=== PATIENT | female | born 1950 | race Caucasian/White ===

== ENCOUNTER 2021-11-05 13:11 | Emergency (ER) | payer MEDICARE, SELFPAY ==
[2021-11-05 13:18] VITALS: BP 133/68; PULSE 78; RESP 16; TEMP 36.6; O2SAT 97
--- NOTE | 2021-11-05 14:02 | ED.URI ---
HPI - URI/Sore Throat General Chief Complaint: Upper Respiratory Infection Stated Complaint: COUGH Time Seen by Provider: 11/05/21 13:40 Source: patient, RN notes reviewed and old records reviewed Mode of arrival: ambulatory Limitations: no limitations History of Present Illness HPI Narrative: 71-year-old female patient [facility] of cough started last night. Reports headache with cough. Mild sore throat. Started coughing last night when she was laying down in bed. Has had difficulty stopping coughing. Bringing up clear sputum at times. Has not taken any medicine for her cough. Denies shortness of breath or difficulty breathing. Denies stuffy nose, runny nose, earache. Just came back from [place] where it was dry and zully. Does have seasonal allergies. Appetite is good. Denies fever muscle aches or chills. MD elicited complaint: cough, sore throat, rhinorrhea and nasal congestion Related Data Home Medications Medication Instructions Recorded Confirmed sertraline 25 mg tablet 25 mg PO DAILY 04/06/20 10/14/20 zolpidem 6.25 mg tablet,extended 6.25 mg PO .QHS tablet 10/14/20 10/14/20 release,multiphase Allergies Allergy/AdvReac Type Severity Reaction Status Date / Time erythromycin base Allergy Unknown Unknown Verified 10/14/20 09:44 Macrolide Antibiotics Allergy Unknown nknown Verified 10/14/20 09:44 nickel Allergy Unknown unknown Verified 10/14/20 09:44 procaine Allergy Unknown DEPRESSED Verified 10/14/20 09:44 BREATHING Review of Systems Review of Systems: CONSTITUTIONAL: Denies malaise, chills, sweats, or fever. EYES: Denies visual changes, redness, or discharge. ENT: Denies rhinorrhea, congestion, sinus pain, otalgia. Mild sore throat. CARDIOVASCULAR: Denies chest pain, palpitations, or edema. RESPIRATORY: Reports frequent cough. Occasional clear sputum. Denies dyspnea or shortness of breath. GASTROINTESTINAL: Denies abdominal pain, nausea, vomiting, diarrhea SKIN: Denies rash or itching. MUSCULOSKELETAL: Denies myalgia. NEUROLOGIC: Denies headache. All systems reviewed & are unremarkable except as noted in HPI and below PMFSH Past Medical History Medical History Body mass index (BMI) 40.0-44.9, adult (08/26/15) Chronic kidney disease, stage 3 (moderate) Depression Essential (primary) hypertension (~1991) Hypothyroidism (acquired) (~2009) Non-recurrent acute suppurative otitis media of right ear without spontaneous rupture of tympanic membrane Other hyperlipidemia Postmenopausal Presence of total right knee joint prosthesis Primary osteoarthritis of knees, bilateral Renovascular hypertension Sleep apnea in adult (~2013) Vitamin D deficiency (~2014) Surgical History Surgical History H/O prior ablation treatment (~1999) Uterine H/O sinus surgery (~1984) History of cholecystectomy (~03/2016) History of total right knee replacement (TKR) (~1984) Family History Family History Father Family history of lung cancer Mother Family history of Alzheimer's disease Sibling , 72 Family history of malignant neoplasm of kidney Heart disease Hypertension Sibling , 55 Acute myocardial infarction Other Family history of arthritis Family history of malignant neoplasm Social History Social History Smoking status: Never smoker Alcohol intake: never Comments At time of signature, agree with nursing past medical, surgical, social and family history. There is no relevant family history pertinent to the presenting complaint Exam Narrative: GENERAL: Well-appearing, well-nourished, female and in no acute distress. Pleasant and cooperative. HEAD: Normocephalic EYES: Conjunctivae clear ENT: Nares clear, clear discharg
== END 2021-11-05 14:20 | disposition home or self-care (01) ==
PROVIDERS: Emergency Provider Nurse Practitioner Family; PCP Internal Medicine
DX: J30.9 Allergic rhinitis, unspecified (principal); I12.9 Hypertensive chronic kidney disease with stage 1 through stage 4 chronic kidney disease, or unspecified chronic kidney disease; N18.30 Chronic kidney disease, stage 3 unspecified; E03.9 Hypothyroidism, unspecified; M17.0 Bilateral primary osteoarthritis of knee; G47.30 Sleep apnea, unspecified; F32.A Depression, unspecified; Z96.651 Presence of right artificial knee joint
CPT/HCPCS: 99213; G0463

== ENCOUNTER 2022-08-31 07:42 | Outpatient (CLI) | payer MEDICARE, SELFPAY ==
--- NOTE | 2022-08-31 | ECHO_ITS ---
Patient Info Name: Adwoa Quick Age: 72 years : 1950 Gender: Female Ht: 64 in Wt: 235 lbs BSA: 2.25 m2 HR: 65 bpm BP: 145 / 97 mmHg Heart Rhythm: Sinus Rhythm Exam Date: 08/31/2022 8:20 AM Exam Location: [facility] Patient Status: Outpatient Admit Date: 08/31/2022 Staff Ordering Physician: Raymon, Alfonso PENA Pharmacometrician: Ivan Clark, JEREMYCS, RT Attending Provider: Raymon, Alfonso PENA Exam Type: CA echo doppler color flow Study Info Indications R94.31 - Abnormal electrocardiogram ECG EKG Complete two-dimensional, color flow and Doppler transthoracic echocardiogram is performed. Strain analysis performed. Summary 1. Complete two-dimensional, color flow and Doppler transthoracic echocardiogram is performed. 2. Global longitudinal strain is borderline at -16 %. 3. Left ventricular chamber dimension is normal. 4. Left ventricular systolic function is normal, estimated at 65-70%. 5. There is moderately increased left ventricular wall thickness. 6. The left ventricular diastolic function is grade I diastolic dysfunction. 7. Left atrial chamber dimension is mildly enlarged. 8. There is mild aortic valve calcification. 9. There is mild tricuspid valve regurgitation. 10. There is mild pulmonic regurgitation. 11. There is mild mitral valve regurgitation. 12. Strain analysis performed. Left Ventricle Global longitudinal strain is borderline at -16 %. Left ventricular chamber dimension is normal. Left ventricular systolic function is normal, estimated at 65-70%. There is moderately increased left ventricular wall thickness. The left ventricular diastolic function is grade I diastolic dysfunction. Right Ventricle Right ventricular chamber dimension is normal. Right ventricular systolic function is normal. Left Atria Left atrial chamber dimension is mildly enlarged. Right Atria Right atrial chamber dimension is normal. Atrial Septum Intact interatrial septum visualized by color flow imaging. Aortic Valve The aortic valve is trileaflet. There is mild aortic valve sclerosis. There is no aortic valve stenosis. There is trace aortic valve regurgitation. There is mild aortic valve calcification. Pulmonic Valve The pulmonic valve is normal. There is no pulmonic valve stenosis. There is mild pulmonic regurgitation. Mitral Valve The mitral valve has normal leaflets. There is no mitral valve stenosis. There is mild mitral valve regurgitation. Tricuspid Valve The tricuspid valve leaflets are normal. There is no significant tricuspid valve stenosis. There is mild tricuspid valve regurgitation. Pericardium/Pleural The pericardium appears normal. There is trivial pericardial effusion. Inferior Vena Cava Normal inferior vena cava with <50% collapse upon inspiration consistent with elevated right atrial pressure, 10 mmHg. Aorta The aortic root size at the sinus of Valsalva is normal. Left Ventricular Outflow Tract Name Value Normal LVOT 2D LVOT Diameter 2.0 cm LVOT Doppler LVOT Peak Gradient 3 mmHg LVOT Mean Gradient
== END 2022-08-31 07:43 | disposition home or self-care (01) ==
PROVIDERS: PCP Internal Medicine; Visit Provider Internal Medicine
DX: R94.31 Abnormal electrocardiogram [ECG] [EKG] (principal); I10 Essential (primary) hypertension; I08.3 Combined rheumatic disorders of mitral, aortic and tricuspid valves
CPT/HCPCS: 93306

== ENCOUNTER 2023-12-02 16:46 | Emergency (ER) | payer MEDICARE, SELFPAY ==
--- NOTE | 2023-12-02 16:52 | ED.GENADULT ---
HPI - General Adult General Chief complaint: Upper Respiratory Infection Stated complaint: SINUS/COUGH/SNEEZING/SORE THROAT Source: patient, RN notes reviewed and old records reviewed Mode of arrival: ambulatory Limitations: no limitations History of Present Illness HPI narrative: 73-year-old female presents to [facility] with complaints of sinus congestion, sinus pressure, myalgia, fever, slight cough, sore throat, frequent sneezing this started Sunday. Patient taking Mucinex with little relief. Patient states his fever was 101. Related Data Home Medications Medication Instructions Recorded Confirmed cholecalciferol (vitamin D3) 25 12/02/23 12/02/23 mcg (1,000 unit) tablet fenofibrate 160 mg tablet 160 mg PO DAILY 12/02/23 12/02/23 levothyroxine 50 mcg tablet 50 mcg PO DAILY 12/02/23 12/02/23 lisinopril 5 mg tablet 5 mg PO DAILY 12/02/23 12/02/23 rosuvastatin 20 mg tablet 20 mg PO DAILY 12/02/23 12/02/23 sertraline 25 mg tablet 25 mg PO DAILY 12/02/23 12/02/23 Allergies Allergy/AdvReac Type Severity Reaction Status Date / Time erythromycin base Allergy Unknown Unknown Verified 12/02/23 16:56 Macrolide Antibiotics Allergy Unknown nknown Verified 12/02/23 16:56 nickel Allergy Unknown unknown Verified 12/02/23 16:56 procaine Allergy Unknown DEPRESSED Verified 12/02/23 16:56 BREATHING Review of Systems Constitutional: Constitutional: Reports no additional constitutional complaints, Reports body ache(s), Denies chills, Denies fatigue, Reports fever(s) and Reports headache(s) Eyes: Eyes: Reports no additional eye complaints and Denies blurry vision ENT: Reports system reviewed and no additional complaints, except as documented, Denies vertigo, Denies dizziness, Denies ear discharge, Denies otalgia, Denies facial pain, Denies headache(s), Reports nasal congestion, Reports nasal discharge, Denies sinus pain, Reports sinus pressure and Reports sore throat Cardiovascular: Cardiovascular: Reports no additional cardiovascular complaints, Denies chest pain, Denies chest pain at rest, Denies rapid heart rate and Denies dyspnea Respiratory: Respiratory: Reports no additional respiratory complaints, Denies chest congestion, Reports cough, Denies pain on inspiration, Denies pain with cough and Denies dyspnea Gastrointestinal: Gastrointestinal: Denies abdominal pain, Denies diarrhea, Denies nausea and Denies vomiting Integumentary/Breasts: Skin/Breast: Denies rash Neurologic: Reports system reviewed and no additional complaints, except as documented, Denies vertigo, Denies dizziness and Denies headache(s) Endocrine: Endocrine: Denies fatigue PMFSH Past Medical History Medical History Acute gangrenous cholecystitis Acute recurrent pansinusitis Body mass index (BMI) 40.0-44.9, adult (08/26/15) Cholelithiasis with biliary obstruction Chronic kidney disease, stage 3 (moderate) Depression Essential (primary) hypertension (~1991) Hypothyroidism (acquired) (~2009) Non-recurrent acute suppurative otitis media of right ear without spontaneous rupture of tympanic membrane Other hyperlipidemia Postmenopausal Presence of total right knee joint prosthesis Primary osteoarthritis of knees, bilateral Renovascular hypertension Sleep apnea in adult (~2013) Vitamin D deficiency (~2014) Surgical History Surgical History H/O prior ablation treatment (~1999) Uterine H/O sinus surgery (~1984) History of cholecystectomy (~03/2016) History of total right knee replacement (TKR) (~1984) Family History Family History Father Family history of lung cancer Mother Family history of Alzheimer's disease Sibling , 72 Family history of malignant neoplasm of kidney Heart disease Hypertension Sibling , 55 Acute myocardial infarction Other Family
[2023-12-02 16:57] VITALS: BP 158/90; PULSE 89; RESP 16; TEMP 37.7; O2SAT 100
[2023-12-02 16:58] VITALS: BP 158/90; PULSE 89; RESP 16; TEMP 37.7; O2SAT 100
== END 2023-12-02 17:22 | disposition home or self-care (01) ==
PROVIDERS: Emergency Provider Registered Nurse; PCP Internal Medicine
DX: B34.9 Viral infection, unspecified (principal); Z20.822 Contact with and (suspected) exposure to COVID-19; I12.9 Hypertensive chronic kidney disease with stage 1 through stage 4 chronic kidney disease, or unspecified chronic kidney disease; N18.30 Chronic kidney disease, stage 3 unspecified; E03.9 Hypothyroidism, unspecified; E78.2 Mixed hyperlipidemia; M17.0 Bilateral primary osteoarthritis of knee; Z96.651 Presence of right artificial knee joint; E55.9 Vitamin D deficiency, unspecified; F32.A Depression, unspecified
CPT/HCPCS: 87426; 87804; 99213; G0463

== ENCOUNTER 2025-01-28 13:44 | Outpatient (CLI) | payer MEDICARE, SELFPAY ==
--- NOTE | ~2025-01-28 | MM_ITS ---
EXAMINATION: MM screening prince BI w louise HISTORY: Screening TECHNIQUE: Craniocaudal and mediolateral oblique 3-D tomosynthesis images were obtained and synthetic 2-D images were generated. CAD analysis was submitted and interpreted. COMPARISON: No prior mammogram is available for comparison at this institution. BREAST PARENCHYMAL COMPOSITION: Not dense: There are scattered areas of fibroglandular density. FINDINGS: There is no evidence of suspicious mass, calcification, or architectural distortion to sugg est malignancy in either breast. There has been no suspicious interval change. IMPRESSION: 1. No mammographic evidence of malignancy. 2. Recommend routine screening mammography in one year. BI-RADS Category 1: Negative Reviewed, dictated and finalized at location B.
--- NOTE | ~2025-01-28 | DEXA_ITS ---
Bone Density Report Name: YAMILA PINK Age: 74 Sex: Female Ethnicity: White Date of : 1950 Indication: postmenopausal; screening for osteoporosis; Referring Provider: HAL, CASEY Study: Bone densitometry was performed. Exam Date: January 28, 2025 Accession number: [id number] Bone Density: Region BMD T-score Z-score Classification AP Spine(L1, L2, L3) 0.938 -0.7 1.5 Normal Femoral Neck (Left) 0.694 -1.4 0.6 Osteopenia Total Hip (Left) 0.825 -1.0 0.7 Normal Femoral Neck (Right) 0.631 -2.0 0.0 Osteopenia Total Hip (Right) 0.804 -1.1 0.5 Osteopenia Total Hip Mean 0.815 -1.1 0.6 Osteopenia World Health Organization criteria for BMD impression classify patients as: Normal (T-score at or above -1.0), Osteopenia (T-score between -1.0 and -2.5), or Osteoporosis (T-score at or below -2.5). 10-year Fracture Risk(1): Major Osteoporotic Fracture 10% Hip Fracture 2.0% Reported Risk Factors: [place] (), Neck BMD=0.631, BMI=44.3 (1) FRAX(R) Version 3.08. Fracture probability calculated for an untreated patient. Fracture probability may be lower if the patient has received treatment. Clinical Information Provided by Patient: Has used the following medications: Vitamin D Patient maximum height was 64 Menopause Age: 52 No regular weight bearing exercise Drinks caffeinated beverages Onset of menses at age 14 Number of children 0 Impression: The patient has low bone mass, based on the Right Femoral Neck T-score. The patient has an estimated ten-year risk of hip fracture of 2% and an estimated ten-year risk of major fracture of 10%, based on the WHO FRAX algorithm. Discussion: BONE DENSITY IS LOW AT ONE OR MORE SKELETAL SITES. This patient's lowest T-score is low at one or more skeletal sites. It meets the World Health Organization's (WHO) criteria for ?low bone mass? (T-score between -1.0 and -2.5). The patient's 10-year risk of fracture as calculated by FRAX is less than the threshold where pharmacological therapy is recommended by the National Osteoporosis Foundation (NOF). However, all treatment decisions require clinical judgment and consideration of individual patient factors, including patient preferences, comorbidities, previous drug use, risk factors not captured in the FRAX model (e.g., frailty, falls, vitamin D deficiency, increased bone turnover, interval significant decline in bone density) and possible under or overestimation of fracture risk by FRAX. The patient should follow a healthful lifestyle (good nutrition with adequate calcium and vitamin D, and appropriate weight-bearing exercise). Follow-Up: Consider repeating this study in 2 to 3 years to reassess this patient's status, or sooner if there is some new clinical indication. Reported by: JJ on 01/28/2025 2:21:00 PM. Reviewed, dictated and finalized at location A.
--- OUTSIDE RECORDS SUMMARY | 2025-01-28 13:54 | XMS_ITS | Referral Summary ---
Author Organization [facility] [address] [facility] [address] [facility] [address] [place] [address] Care Team Providers Care Medical Laboratory Specialist Name Role Phone Alfonso Ennis MD Primary Care Provider [phone] Allergies No known active allergies Medications acetaminophen ER (TYLENOL) 650 mg 8 hr tablet Take 1 tablet (650 mg total) by mouth 3 (three) times a day as needed 04/20/2022 Active albuterol HFA (PROVENTIL HFA,VENTOLIN HFA,PROAIR HFA) 90 mcg/actuation inhaler Inhale 2 puffs every 6 (six) hours as needed 12/03/2023 Active aspirin 81 mg enteric coated tablet Take by mouth daily 10/18/2015 Active cholecalciferol 25 mcg (1,000 unit) tablet Take 5 tablets (5,000 Units total) by mouth daily 04/20/[address] (DEPAKOTE) 500 mg EC tablet Take by mouth 07/10/2015 Active fenofibrate (TRIGLIDE) 160 mg tablet 07/10/2015 Active Synthroid 50 mcg tablet 07/10/2015 Active lisinopriL (PRINIVIL,ZESTR [place]) 5 mg tablet Take 1 tablet (5 mg total) by mouth daily Active lovastatin (MEVACOR) 20 mg tablet Take 1 tablet (20 mg total) by mouth nightly Active rosuvastatin (CRESTOR) 20 mg tablet Take 1 tablet (20 mg total) by mouth daily 04/01/2024 Active sertraline (ZOLOFT) 50 mg tablet 07/10/2015 Active traMADoL (ULTRAM) 50 mg tablet Take 1 tablet (50 mg total) by mouth daily as needed 04/20/2023 Active triamterene-hyd roCHLOROthiazid e 37.5-25 mg per tablet/capsule 07/10/2015 Acti ve zolpidem CR (AMBIEN CR) 6.25 mg CR tablet 07/10/2015 Active benzonatate (TESSALON) 200 mg capsuleIndicati ons:COVID-19 Take 1 capsule (200 mg total) by mouth 3 (three) times a day as needed for cough 30 capsule 04/23/2024 Active Active Problems Problem Noted Date Diagnosed Date Stage 3b chronic kidney disease 04/20/2021 Overview (04/23/2024): Kidney function currently stable. Patient avoiding NSAIDs. Medications renally dosed. Acquired hypothyroidism 04/19/2021 Bipolar depression 04/19/2021 Overview (04/23/2024): Follows with psychiatry On divalproex and sertraline. Regular follow up Symptoms currently stable. No suicidal ideations or intentions to harm. Patient currently compliant with medications for any side effects. Class 3 severe obesity due to excess calories in adult 04/19/2021 Overview (04/23/2024): -Pt has elevated weight with BMI Body mass index is 41.06 kg/m ., and will need to work hard on reducing carbohydrates and total calories. -You may use the free smart phone apps such as [place] to help track calories and try to reduce by 15% every 4 weeks. -Patient will work on reducing total portion sizes to try to reduce the size of their stomach. -Exercising about 30 minutes every day with cardio work outs. -Avoid regular soda, juices and alcohol. -Recommended limiting GPS foods (Grains, Potatoes, Sugars) as much as possible. Eating food that it is not highly processed and that they can recognize. Eating when they are hungry and not by a time schedule. -Lets aim to have them loose about 1 pound per week and 5 pounds per month. Insomnia 04/19/2021 Mixed hyperlipidemia 04/19/2021 Primary osteoarthritis involving multiple joints 04/19/2021 Vitamin D deficiency 04/19/2021 Osteoarthritis 07/12/2015 Other hyperlipidemia 07/12/2015 Overview (04/23/2024): Converted unresolved ICD9, potential mismatch. 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 Gender Identity Not on file Sexual Orientation Not on file Last Filed Vital Signs Vital Sign Reading Time Taken Comments Blood Pressure 130/86 04/23/2024 5:16 PM CDT Pulse 85 04/23/2024 5:16 PM CDT Temperature 37.7 C (99.9 F) 04/23/2024 5:16 PM CDT Respiratory Rate 18 04/23/2024 5:16 PM CDT Oxygen Saturation 95% 04/23/2024 5:16 PM CDT Inhaled Oxygen Concentration - - Weight 117.9 kg (260 lb) 04/23/2024 5:16 PM CDT Height 162.6 cm (5' 4 ) 04/23/2024 5:16 PM CDT Body Mass Index 44.63 04/23/2024 5:16 PM CDT Plan of Treatment Not on file Insurance [facility] MEDICARE ADVANTAGE [facility] MEDICARE ADVANTAGE Care Teams Medical Laboratory Specialist Relationship Specialty Start Date End Date Alfonso Ennis MD [address] [address] PCP - General Internal Medicine 08/31/22
--- OUTSIDE RECORDS SUMMARY | 2025-01-28 13:54 | XMS_ITS | Clinical Summary ---
Author Organization [facility] Address [address] [place] [address] Care Team Providers Care Automobile Painter Name Role Phone Pako Sánchez MD Primary Care Provider [phone] Source Comments [facility],non-owned Affiliates and Associated Physician Practices is amultiple site organization consisting of ambulatory clinics and hospital sitesin [place], [place], [place] and [place]. This disclosure is being madepursuant to the Care Everywhere program and may not contain all information available regarding this patient. Last updated 18.[facility] Allergies No known active allergies Medications * Be aware that medications may not be up to date on this document. Alwaysverify current medications with the patient. zolpidem CR (AMBIEN CR) 6.25 MG tablet Take 6.25 mg by mouth nightly as needed for Insomnia Active divalproex DR (DEPAKOTE) 500 MG tablet Take 500 mg by mouth 3 times daily Active fenofibrate (LOFIBRA) 160 MG tablet Take 160 mg by mouth once daily Take with largest meal of the day. Active lovastatin (MEVACOR) 20 MG tablet Take 20 mg by mouth at bedtime Active triamterene-hyd roCHLOROthiazid e (MAXZIDE-25) 37.5-25 MG tablet Take 1 tablet by mouth once daily Active levothyroxine (SYNTHROID) 25 MCG tablet Take 25 mcg by mouth daily before breakfast Active ASPIRIN 81 PO Active Family History Medical History Relation Name Comments Cancer - Other Father Alzheimer's Disease Mother Asthma Neg Hx Autoimmune Disease Neg Hx Bipolar Disorder Neg Hx Cancer - Breast Neg Hx Cancer - Colon Neg Hx Cancer - Ovarian Neg Hx Cancer - Pancreatic Neg Hx Cancer - Prostate Neg Hx Depression Neg Hx Eczema Neg Hx Hypertension Neg Hx Migraine Neg Hx Osteoporosis Neg Hx Seizures Neg Hx Sudd. <30 Neg Hx Thyroid Disease Neg Hx Ulcerative Colitis Neg Hx Relation Name Status Comments Father Mother Social History Tobacco Use Types Packs/Day Years Used Date Smoking Tobacco: Never Smokeless Tobacco: Never Tobacco Cessation:Counseling Given: No Alcohol Use Standard Drinks/Week Comments No 0 (1 standard drink = 0.6 oz pur e alcohol) Comments No Sex and Gender Information Value Date Recorded Sex Assigned at Not on file Legal Sex Female 12:03 PM CDT Gender Identity Not on file Sexual Orientation Not on file Last Filed Vital Signs Vital Sign Reading Time Taken Comments Blood Pressure 126/54 03/25/2018 3:52 PM CDT Pulse 60 03/25/2018 3:52 PM CDT Temperature 36.6 C (97.9 F) 03/25/2018 3:52 PM CDT Respiratory Rate 20 03/25/2018 3:52 PM CDT Oxygen Saturation 97% 03/25/2018 3:52 PM CDT Inhaled Oxygen Concentration - - Weight 113.4 kg (250 lb) 03/25/2018 3:52 PM CDT Height 162.6 cm (5' 4 ) 03/25/2018 3:52 PM CDT Body Mass Index 42.91 03/25/2018 3:52 PM CDT Plan of Treatment Health Maintenance Due Date Last Done Comments BONE DENSITY TESTING 1950 COLOGUARD (AGES 45-75) - COL ON CA SCREENING 1950 COLON MONITORING 1950 COLONOSCOPY - COLON CA SCREENING 1950 CT COLONOGRAPHY - COLON CA SCREENING 1950 Colorectal Cancer Screening 1950 FIT - COLON CA SCREENING 1950 FLEX SIG - COLON CA SCREENING 1950 MAMMOGRAM 1950 HEPATITIS C SCREENING 05/07/1970 DTAP/TDAP/TD VACCINES (1 - Tdap) 1971 PNEUMOCOCCAL VACCINE 50+ (1 of 1 - PCV) 2002 ZOSTER VACCINE (1 of 2) 2002 Respiratory Syncytial Virus (RSV) Vaccine Pt: or over 60 yrs (1 - Risk 60-74 years 1-dose series) 2012 SCREENING FOR DIABETES 03/25/2018 COVID-19 VACCINE (1 - 2024-2 5 season) 2024 DEPRESSION SCREENING 09/10/2024 INFLUENZA VACCINE (Season Ended) 2025 HEPATITIS B VACCINE Aged Out No longe r eligible based on patient's age to complete this topic HIB VACCINE Aged Out No longer eligi ble based on patient's age to complete this topic HPV VACCINE Aged Out No longer eligi ble based on patient's age to complete this topic MENINGOCOCCAL (Group B) VACC INE SHARED DECISION-MAKING Aged Out No longer eligibl e based on patient's age to complete this topic MENINGOCOCCAL GROUPS A/C/Y/W VACCINE Aged Out No longer eligible b ased on patient's age to complete this topic Insurance [facility] MANAGED MEDICARE ADV Care Teams Automobile Painter Relationship Specialty Start Date End Date Pako Sánchez MD [address] [place] [address] PCP - General Family Medicine 03/25/18
--- OUTSIDE RECORDS SUMMARY | 2025-01-28 13:54 | XMS_ITS | Clinical Summary ---
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 Gender Identity Not on file Sexual Orientation Not on file Obstetrics History Last Filed Vital Signs Vital Sign Reading [...] 04/23/2024 5:16 PM CDT Plan of Treatment Health Maintenance Due Date Last Done Comments Colon Cancer Screening-Colonoscopy 1950 Depression Screening 1950 Fall Risk Assessment 1950 Hepatitis C Screening 1950 Hepatitis B Screening 1970 Zoster Vaccine (1 of 2) 2002 Well Visit 65+ 2017 Osteoporosis Screening-Bone Density Scan 05/05/2023 05/05/2021 Breast Cancer Screening-Mammogram 05/09/2023 05/09/2022, 05/09/2022, 05/05/2021 DTaP/Tdap/Td Vaccine (2 - Td or Tdap) 09/10/2023 09/10/2013 Covid-19 Vaccine (2023-10 5 season) 2024 05/30/2023, 08/08/2022, 06/29/2021, Additional history exists Influenza Vaccine (Season Ended) 2025 05/30/2023, 08/09/2022, 06/15/2021, Additional history exists Pneumococcal vaccine 65+ Completed 022, 04/19/2021, 07/29/2014 Insurance [facility] MEDIC[facility] ADVANTAGE [facility] Care Teams Patient Scheduler Relationship Specialty Start Date End Date Alfonso Ennis MD [address] [address] PCP - General Internal Medicine 08/31/22
--- OUTSIDE RECORDS SUMMARY | 2025-01-28 13:54 | XMS_ITS | Clinical Summary ---
Author Organization [facility] Address [address] [place] [id number] Phone Care Team Providers Care Hand Tacker Name Role Phone Unavailable Primary Care Provider Unavailabl e Medications aspirin (ASPIR-LOW) 81 MG EC tablet 1 daily 10/18/2015 Active zolpidem CR (AMBIEN CR) 6.25 MG CR tablet 07/10/2015 Active fenofibrate (TRIGLIDE) 160 MG tablet 07/10/2015 Active divalproex (DEPAKOTE) 500 MG EC tablet 3 daily 07/10/2015 Active triamterene-hydr oCHLOROthiazide (MAXZIDE-25) 37.5-25 MG per tablet 07/10/2015 Active levothyroxine (SYNTHROID) 50 MCG tablet 07/10/2015 Active sertraline (ZOLOFT) 50 MG tablet 07/10/2015 Active Active Problems Problem Noted Date Diagnosed Date Other specified abnormal finding of blood chemis try 07/12/2015 Essential (primary) hypertension 07/12/2015 Other hyperlipidemia 07/12/2015 Overview (11/23/2018): Converted unresolved ICD9, potential mismatch. Osteoarthritis 07/12/2015 Family History Medical History Relation Comments Malignant neoplastic disease Father Malignant neoplastic disease Sibling Kidney disease Neg Hx Relation Status Comments Father Sibling Social History Tobacco Use Types Packs/Day Years Used Date Smoking Tobacco: Never Alcohol Use Standard Drinks/Week Comments No 0 (1 standard drink = 0.6 oz pur e alcohol) Comments Unknown Sex and Gender Information Value Date Recorded Sex Assigned at Not on file Legal Sex Female 9:22 AM MST Gender Identity Not on file Sexual Orientation Not on file Last Filed Vital Signs Vital Sign Reading Time Taken Comments Blood Pressure 106/70 10/18/2015 12:01 AM HEAD BANQUET WAITRESS Pulse 60 10/18/2015 12:01 AM HEAD BANQUET WAITRESS Temperature 36.1 C (97 F) 10/18/2015 12:01 AM HEAD BANQUET WAITRESS Respiratory Rate - - Oxygen Saturation - - Inhaled Oxygen Concentration - - Weight 113 kg (250 lb) 10/18/2015 12:01 AM HEAD BANQUET WAITRESS Height 162.6 cm (5' 4 ) 10/18/2015 12:01 AM HEAD BANQUET WAITRESS Body Mass Index 42.91 10/18/2015 12:01 AM HEAD BANQUET WAITRESS Plan of Treatment Not on file
== END 2025-01-28 13:45 | disposition home or self-care (01) ==
LOC: ANHIMG 13:46
PROVIDERS: PCP Internal Medicine; Visit Provider Internal Medicine
DX: Z12.31 Encounter for screening mammogram for malignant neoplasm of breast (principal); Z78.0 Asymptomatic menopausal state; M85.89 Other specified disorders of bone density and structure, multiple sites
CPT/HCPCS: 77063; 77067; 77080